=== PATIENT | male | born 1990 | race Caucasian/White ===

== ENCOUNTER 2016-10-02 21:04 | Emergency (ER) | payer SELFPAY ==
[2016-10-02 21:31] VITALS: BP 146/69; PULSE 84; TEMP 99; BMI 25.0
[2016-10-02] MEDS ORDERED: ONDANSETRON 4 MG/2 ML VIAL IVPUSH ONE (22:38)
[2016-10-02] MEDS ORDERED: morphine CARPU-JECT 4 MG/1 ML DISP.SYRIN IVPUSH ONE (22:38)
[2016-10-02] MEDS ORDERED: SODIUM CHLORIDE 1,000 ML IV STA (22:38)
[2016-10-02] MEDS ORDERED: morphine CARPU-JECT 2 MG/1 ML DISP.SYRIN ONE (23:18)
[2016-10-02] MEDS ORDERED: ONDANSETRON 4 MG/2 ML VIAL ONE (23:18)
[2016-10-02 23:40] LABS: BASOPHIL 0.3 % (0-2.0); EOSINOPHIL 0.8 % (0-4.5); MCH 30.6 pg (25.7-33.7); MCHC 33.4 g/dl (32.0-35.9); MEAN CELL VOLUME 91.7 fl (80-96); MEAN PLT VOLUME 8.6 fl (7.5-11.1); NEUTROPHILS 78.3 % (42.8-82.8); PLATELET COUNT 222 K/MM3 (134-434); WHITE BLOOD COUNT 10.5 K/mm3 (4.0-10.0)
[2016-10-03] LABS: ANION GAP 10 (8-16); CALCIUM 8.3 mg/dL (8.5-10.1); CO2 26 mmol/L (21-32); CREATININE 1.4 mg/dL (0.7-1.3); GLUCOSE,RANDOM 101 mg/dL (74-106)
[2016-10-03] MEDS ORDERED: morphine CARPU-JECT 4 MG/1 ML DISP.SYRIN IVPUSH ONE (00:36)
[2016-10-03] MEDS ORDERED: ONDANSETRON 4 MG/2 ML VIAL ONE (00:37)
[2016-10-03] MEDS ORDERED: morphine CARPU-JECT 2 MG/1 ML DISP.SYRIN ONE (00:37)
--- NOTE | 2016-10-03 00:46 | PDOC ---
History of Present Illness - General Chief Complaint: Pain Stated Complaint: FALL INJURY Time Seen by Provider: 10/02/16 22:29 History Source: Patient Exam Limitations: No Limitations - History of Present Illness Initial Comments: 10/03/16 00:41 26yo Male patient with no significant past medical history presents to ED c/o fall from roof today. Patient reports working on roof 10-15 ft high, reportedly fell to + LOC. Patient states his friend woke him up from ground, and sat with him until he felt better. Patient states he can not recall anything from today. He states he did not seek medical attention earlier because he felt fine. Patient now c/o head, neck, back, chest, and pelvic pain. He denies any other complaints at this time. Occurred: reports: this evening Pain Location: reports: back, chest, head, lower extremity, neck, pelvis, upper extremity Method of Injury: Yes: fall Modifying Factors: worse with: None, cold therapy, immobilization, pain medication, rest, other Loss of Consciousness: unsure Associated Symptoms (Fall): headache, neck pain Past History - Travel Traveled outside of the country in the last 30 days: No Close contact w/someone who was outside of country & ill: No - Past Medical History Allergies/Adverse Reactions: Allergies Allergy/AdvReac Type Severity Reaction Status Date / Time No Known Allergies Allergy Verified 10/02/16 21:28 Other medical history: Pt denies - Surgical History Appendectomy: Yes - Psycho/Social/Smoking Cessation Hx Suicidal Ideation: No Smoking History: Current every day smoker Number of Cigarettes Smoked Daily: 20 Information on smoking cessation initiated: No Hx Alcohol Use: No Drug/Substance Use Hx: No Substance Use Type: None Trauma Specific PMHX - Complaint Specific PMHX Arthritis: No Back Injury: No Neck Injury: No Hx Sacro Iliac Joint Dysfunction: No Review of Systems - Review of Systems Able to Perform ROS?: Yes Is the patient limited Chinese proficient: No Constitutional: No: Chills, Fever Respiratory: No: Shortness of Breath, Stridor, Wheezing Cardiac (ROS): No: Chest Pain, Lightheadedness, Palpitations, Syncope, Chest Tightness ABD/GI: No: Constipated, Diarrhea, Nausea, Poor Appetite, Poor Fluid Intake, Vomiting, Abdominal cramping : No: Burning, Dysuria, Flank Pain, Hematuria, Testicular Pain Musculoskeletal: Yes: Back Pain, Muscle Pain, Neck Pain, Other (Pelvic Pain) Integumentary: Yes: Bruising, Other (Abrasions) Neurological: Yes: Headache. No: Unsteady Gait, Ataxia, Dizziness All Other Systems: Reviewed and Negative *Physical Exam - Vital Signs Last Vital Signs Temp Pulse Resp BP Pulse Ox 99.0 F 84 20 146/69 97 10/02/16 21:28 10/02/16 21:28 10/02/16 21:28 10/02/16 21:28 10/02/16 21:28 - Physical Exam General Appearance: Yes: Nourished, Appropriately Dressed, Mild Distress. No: Apparent Distress, Moderate Distress, Severe Distress HEENT: positive: EOMI, LIS, Normal ENT Inspection, Normal Voice, Symmetrical, TMs Normal, Pharynx Normal. negative: Tonsillar Exudate, Tonsillar Erythema, Nasal Congestion, Rhinorrhea, TM Bulging, TM Dull, TM Erythema Neck: positive: Tender, Trachea midline, Supple, Tender midline. negative: Decreased range of motion, Stridor, Lymphadenopathy (R), Lymphadenopathy (L), Tender lateral Respiratory/Chest: positive: Chest Tender, Lungs Clear, Normal Breath Sounds. negative: Respiratory Distress, Accessory Muscle Use, Labored Respiration, Rapid RR, Stridor, Wheezing Cardiovascular: positive: Regular Rhythm, Regular Rate Gastrointestinal/Abdominal: positive: Normal Bowel Sounds, Soft. negative: Distended, Guarding, Rebound, Tenderness Musculoskeletal: positive: Normal Inspection, Decreased Range of Motion, Vertebral Tenderness. negative: CVA Tenderness Extremity: positive: Normal Capillary Refill, Normal Inspection, Normal Range of Motion, Pelvis Stable. 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, Fully Oriented, Alert, Normal Mood/ Affect, Normal Response, Motor Strength 06/15 ED Treatment Course - LABORATORY CBC & Chemistry Diagram: 10/02/16 23:11 10/02/16 23:11 - ADDITIONAL ORDERS Additional order review: Laboratory Results 10/02/16 23:11 Sodium 136 Potassium 3.3 L Chloride 100 Carbon Dioxide 26 Anion Gap 10 BUN 15 Creatinine 1.4 H Random Glucose 101 Calcium 8.3 L 10/02/16 23:11 RBC 4.87 MCV 91.7 MCHC 33.4 RDW 14.0 MPV 8.6 Neutrophils % 78.3 Lymphocytes % 13.8 Monocytes % 6.8 Eosinophils % 0.8 Basophils % 0.3 - RADIOLOGY Radiology Studies Ordered: Category Date Time Status ABDOMEN & PELVIS CT WITH CONTR [CT] Stat CT Scan 10/03/16 00:[address] W/O CONTR [CT] Stat CT Scan 10/02/16 22:[address] WITH CONTRAST [CT] Stat CT Scan 10/03/16 00:[address] WITHOUT CONTRAST [CT] Stat CT Scan 10/02/16 22:39 Completed - Medications Given in the ED: ED Medications Discontinued Medications Generic Name Dose Route Start Last Admin Trade Name Freq PRN Reason Stop Dose Admin Sodium Chloride 1,000 mls @ 1,000 mls/hr 10/02/16 22:38 10/02/16 23:29 Normal Saline - IV 10/02/16 23:37 1,000 mls/hr ASDIR STA Administration Morphine Sulfate 4 mg 10/02/16 22:38 10/02/16 23:29 Morphine Injection - IVPUSH 10/02/16 22:39 4 mg ONCE ONE Administration Ondansetron HCl 4 mg 10/02/16 22:38 10/02/16 23:29 Zofran Injection IVPUSH 10/02/16 22:39 4 mg ONCE ONE Administration Medical Decision Making - Medical Decision Making 10/03/16 00:48 Will work patient up as trauma patient. [facility]-Scan, and labs. Attending made aware.
[2016-10-03] MEDS ORDERED: PRESCRIPTION PAD 1 EACH EACH NR ONE (02:23)
[2016-10-03] MEDS ORDERED: METHOCARBAMOL 500 MG TABLET ONE (02:44)
[2016-10-03] MEDS ORDERED: KETOROLAC TROMETHAMINE 30 MG/1 ML VIAL ONE (02:44)
== END 2016-10-03 02:44 | disposition left against medical advice (07) ==
LOC: JER 21:04
PROC: 3E033NZ Introduction of Analgesics, Hypnotics, Sedatives into Peripheral Vein, Percutaneous Approach (ICD-10-PCS; principal; 2016-10-02)
PROC: 3E033NZ Introduction of Analgesics, Hypnotics, Sedatives into Peripheral Vein, Percutaneous Approach (ICD-10-PCS; 2016-10-02)
PROC: 3E033GC Introduction of Other Therapeutic Substance into Peripheral Vein, Percutaneous Approach (ICD-10-PCS; 2016-10-02)
DX: S06.899A Other specified intracranial injury with loss of consciousness of unspecified duration, initial encounter (principal); M54.2 Cervicalgia; M54.5 Low back pain; R07.89 Other chest pain; R10.30 Lower abdominal pain, unspecified; W13.2XXA Fall from, out of or through roof, initial encounter; Y93.89 Activity, other specified; Y92.89 Other specified places as the place of occurrence of the external cause; Y99.8 Other external cause status
CPT/HCPCS: 36415; 70450-TC; 71260-TC; 72125-TC; 74177-TC; 80048; 85025; 99281-25

== ENCOUNTER 2016-10-05 20:18 | Emergency (ER) | payer SELFPAY ==
[2016-10-05 20:33] VITALS: BP 150/50; PULSE 79; TEMP 100.6; BMI 25.0
[2016-10-05] MEDS ORDERED: SODIUM CHLORIDE 1,000 ML IV STA (20:59)
[2016-10-05] MEDS ORDERED: KETOROLAC TROMETHAMINE 30 MG/1 ML VIAL IVPUSH ONE (20:59)
--- NOTE | 2016-10-05 20:59 | PDOC ---
History of Present Illness - General Chief Complaint: Back Pain Stated Complaint: BACK PAIN Time Seen by Provider: 10/05/16 20:40 History Source: Patient Exam Limitations: No Limitations - History of Present Illness Initial Comments: 10/05/16 20:53 Patient is a 26M with no significant medical history here today complaining of back pain s/p fall. He presented to the ED on 10/02. He had CT scan of head, neck , chest, abdomen and pelvis, all were unremarkable. Was given 4mg morphine and discharged with percocet. Patient reports that pain got better initially, but got worse today. The pain is worse in his lower back in both paraspinal areas. He denies fevers, chills, nausea, and vomiting. He denies difficulties with urination. Past History - Past Medical History Allergies/Adverse Reactions: Allergies Allergy/AdvReac Type Severity Reaction Status Date / Time No Known Allergies Allergy Verified 10/05/16 20:33 Home Medications: Ambulatory Orders Cyclobenzaprine HCl [Flexeril 10 mg] 10 mg PO BID PRN #30 tablet 10/05/16 Naproxen [Naprosyn -] 500 mg PO BID #28 tablet 10/05/16 - Surgical History Appendectomy: Yes - Psycho/Social/Smoking Cessation Hx Anxiety: No Suicidal Ideation: No Smoking History: Current every day smoker Have you smoked in the past 12 months: Yes Number of Cigarettes Smoked Daily: 20 Information on smoking cessation initiated: No Hx Alcohol Use: No Drug/Substance Use Hx: No Substance Use Type: None Review of Systems - Review of Systems Comments:: 10/06/16 03:16 GENERAL/CONSTITUTIONAL: No fever or chills. No weakness. HEAD, EYES, EARS, NOSE AND THROAT: No change in vision. No ear pain or discharge. No sore throat. CARDIOVASCULAR: No chest pain or shortness of breath RESPIRATORY: No cough, wheezing, or hemoptysis. GASTROINTESTINAL: No nausea, vomiting, diarrhea or constipation. GENITOURINARY: No dysuria, frequency, or change in urination. MUSCULOSKELETAL: Positive for lower back pain. SKIN: Positive for multiple small wounds on lower extremities NEUROLOGIC: No headache, vertigo, loss of consciousness, or change in strength/ sensation. ALLERGIC/IMMUNOLOGIC: No hives or skin allergy. *Physical Exam - Vital Signs Last Vital Signs Temp Pulse Resp BP Pulse Ox 100.6 F H 79 24 150/50 99 10/05/16 20:31 10/05/16 20:31 10/05/16 20:31 10/05/16 20:31 10/05/16 20:31 - Physical Exam Comments: 10/06/16 03:19 GENERAL: Awake, alert, and fully oriented, in no acute distress HEAD: No signs of trauma, normocephalic, atraumatic EYES: PERRLA, EOMI, sclera anicteric, conjunctiva clear ENT: Auricles normal inspection, hearing grossly normal, nares patent, oropharynx clear without exudates. Moist mucosa NECK: Normal ROM, supple, no lymphadenopathy, JVD, or masses BACK: No midline tenderness, positive for paraspinal tenderness LUNGS: No distress, speaks full sentences, clear to auscultation bilaterally HEART: Regular rate and rhythm, normal S1 and S2, no murmurs, rubs or gallops, peripheral pulses normal and equal bilaterally. ABDOMEN: Soft, nontender, normoactive bowel sounds. No guarding, no rebound. No masses EXTREMITIES: Multiple small wounds all four extremities, Normal range of motion , no edema. No clubbing or cyanosis. NEUROLOGICAL: Cranial nerves II through XII grossly intact. Normal speech, normal gait, no focal sensorimotor deficits SKIN: Warm, Dry, normal turgor, large sunburn. ED Treatment Course - LABORATORY CBC & Chemistry Diagram: 10/05/16 22:07 10/05/16 22:07 Medical Decision Making - Medical Decision Making 10/06/16 03:22 Patient is a 26M with no significant medical history here after a fall. [facility]- scanned at last vist: normal CT abd, pelvis, chest, head and neck. Tachypneic in triage, respiratory rate 18 at bedside. Fever secondary to sunburn. CBC shows no white count. Given toradol, still has opiate prescription from prior visit. Discharged with PCP follow up and prescriptions for flexeril and naproxen. Given return precautions and expressed understanding. *DC/Admit/Observation/Transfer Diagnosis at time of Disposition: Back pain Qualifiers: Back pain location: low back pain Chronicity: acute Back pain laterality: bilateral Sciatica presence: without sciatica Qualified Code(s): M54.5 - Low back pain - Discharge Dispostion Disposition: HOME Condition at time of disposition: Good Admit: No - Prescriptions Prescriptions: Cyclobenzaprine HCl [Flexeril 10 mg] 10 mg PO BID PRN #30 tablet PRN Reason: Back Pain Naproxen [Naprosyn -] 500 mg PO BID #28 tablet - Patient Instructions Printed Discharge Instructions: DI for Low Back Pain
[2016-10-05] MEDS ORDERED: KETOROLAC TROMETHAMINE 30 MG/1 ML VIAL ONE (21:05)
[2016-10-05 22:18] LABS: BASOPHIL 0.3 % (0-2.0); EOSINOPHIL 0.1 % (0-4.5); MCH 31.2 pg (25.7-33.7); MEAN CELL VOLUME 91.6 fl (80-96); NEUTROPHILS 81.5 % (42.8-82.8); PLATELET COUNT 161 K/MM3 (134-434); RDW 13.8 % (11.9-15.9); WHITE BLOOD COUNT 5.5 K/mm3 (4.0-10.0)
[2016-10-05] MEDS ORDERED: CYCLOBENZAPRINE HCL 10 MG TABLET (FP) PO ONE ×2 (22:26→22:30)
[2016-10-05] MEDS ORDERED: CYCLOBENZAPRINE HCL 10 MG TABLET (FP) ONE (22:29)
[2016-10-05 22:48] LABS: ALBUMIN 2.9 g/dl (3.4-5.0); ALK PHOS 54 U/L (45-117); ANION GAP 7 (8-16); BILIRUBIN,TOTAL 0.6 mg/dL (0.2-1.0); CALCIUM 7.5 mg/dL (8.5-10.1); CO2 24 mmol/L (21-32); GLUCOSE,RANDOM 132 mg/dL (74-106); SGOT/AST 72 U/L (15-37); SGPT/ALT 51 U/L (12-78); TOT PROT 5.6 g/dl (6.4-8.2)
--- NOTE | 2016-10-06 00:02 | PDOC ---
Attending Attestation - Resident Resident Name: Isaac Rizvi - ED Attending Attestation I have performed the following: I have examined & evaluated the patient, The case was reviewed & discussed with the resident, I agree w/resident's findings & plan, Exceptions are as noted - HPI HPI: 10/05/16 23:06 26 year old male c/ no past medical history presents with persistent back pain. Pt was seen several days ago from a fall from roof. At that time, had a vidal CT scan which demonstrated no acute injury. Pt is now complaining of back spasm. Denies recent illnesses, fevers, chills, cough, vomiting. Incidentally, pt is noted to have a temp of 100.6 but denies any other vomiting , diarrhea, dysuria. Does have a sunburn from working out in the sun. - Physicial Exam PE: 10/06/16 00:02 GENERAL: Awake, alert, and fully oriented, in no acute distress. HEAD: No signs of trauma EYES: PERRLA, EOMI, sclera anicteric, conjunctiva clear ENT: Auricles normal inspection, hearing grossly normal, nares patent, oropharynx clear without exudates. NECK: Normal ROM, supple, no lymphadenopathy, JVD, or masses LUNGS: Breath sounds equal, clear to auscultation bilaterally. No wheezes, and no crackles HEART: Regular rate and rhythm, normal S1 and S2, no murmurs, rubs or gallops ABDOMEN: Soft, nontender, normoactive bowel sounds. No guarding, no rebound. No masses EXTREMITIES: Normal range of motion, no edema. No clubbing or cyanosis. No cords, erythema, or tenderness NEUROLOGICAL: Cranial nerves II through XII grossly intact. Normal speech, normal gait SKIN: Warm, Dry, normal turgor, no rashes or lesions noted. BACK: diffuse back spasm. No spinal tenderness - Medical Decision Making 10/06/16 00:02 Vital Signs Temp Pulse Resp BP Pulse Ox 100.6 F H 79 24 150/50 99 10/05/16 20:31 10/05/16 20:31 10/05/16 20:31 10/05/16 20:31 10/05/16 20:31 I suspect that the patient is likely have MSK back spasm. His temperatore of 100.6, though has no apparent sources. This could be viral syndrome. It may be possible that this is potentially a low grade temp from his sunburn. CBC, BMP 10/05/16 22:07 10/05/16 22:07 Labs are reviewed. WBC is 5.5 However, will consider as viral syndrome at this time. Pt feels somewhat better. Will likely need several days before symptoms improve. Will have patient follow up with PMD. Return precautions given.
== END 2016-10-05 23:28 | disposition home or self-care (01) ==
LOC: SUPCPDRO 20:18 → JER 20:18
PROC: 3E0333Z Introduction of Anti-inflammatory into Peripheral Vein, Percutaneous Approach (ICD-10-PCS; principal; 2016-10-05)
DX: M54.5 Low back pain (principal); L55.9 Sunburn, unspecified; W13.2XXD Fall from, out of or through roof, subsequent encounter
CPT/HCPCS: 36415; 80053; 85025; 99283-25